=== PATIENT | male | born 1965 | race Caucasian/White ===

== ENCOUNTER → 2020-08-22 14:27 | Outpatient (CLI) | payer OTHER, SELFPAY ==
--- NOTE | ~2020-08-22 | XR_ITS ---
XR shoulder RT min 2V DATE: 08/22/2020 15:12 INDICATION: Right shoulder pain TECHNIQUE: 4 views COMPARISON: None FINDINGS: No fracture or dislocation, periosteal reaction or bone destruction or abnormal soft tissue calcification of the right shoulder. Normal alignment at the acromioclavicular and glenohumeral join ts. IMPRESSION: Negative Reviewed, dictated and finalized at location A. IMPRESSION: Negative
--- NOTE | ~2020-08-22 | XR_ITS ---
EXAMINATION: XR wrist RT min 3V DATE: 08/22/2020 15:12 INDICATION: Right wrist pain TECHNIQUE: Posteroanterior, ulnar deviation, oblique, and lateral views of the right wrist were obtai pinky. COMPARISON: none FINDINGS: No fracture. There is dorsal intercalated segment instability (DISI) with increased scapholunate angl e. Osteoarthritis with severe joint space narrowing at the radioscaphoid articulation and mild to mod erate nonuniform joint space narrowing at the lunocapitate articulation of the midcarpal joint. The a typical predominance at the radioscaphoid articulation can be seen in the setting of scapholunate adv anced collapse (SLAC) wrist. More typical pattern of mild osteoarthritis at the triscaphe and first c arpal metacarpal joints. IMPRESSION: 1. 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 Reviewed, dictated and finalized at location A. IMPRESSION: 1. 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
== END ==
PROVIDERS: Visit Provider Nurse Practitioner Adult Health
DX: M25.511 Pain in right shoulder (principal); M19.031 Primary osteoarthritis, right wrist
CPT/HCPCS: 73030; 73110

== ENCOUNTER 2022-07-29 00:16 | Day surgery (SDC) | payer OTHER, SELFPAY ==
[2022-07-23 14:19] VITALS: BMI 29.9
[2022-07-29 08:41] VITALS: BP 108/74; PULSE 74; RESP 16; TEMP 36.4; O2SAT 97
[2022-07-29] MEDS: LACTATED RINGERS 1,000 ML 150 ML IV CONT (08:43)
--- NOTE | 2022-07-29 08:54 | PM.HPGS ---
History of Present Illness History of Present Illness Consent: Risks, benefits, and alternatives have been discussed and questions answered. Patient agrees to proceed with procedure. Chief complaint: neoplasm screening Narrative: Flo Buckner is a 56 year old male Presents for screening colonoscopy. Patient's current weight appetite and bowel movements are normal. Patient denies abdominal pain. He has had bleeding. Family history is significant both father and brother have had colon polyps. Previous colonoscopy 2017 was unremarkable. Review of Systems Review of Systems: Review of systems noncontributory. [facility] Past Medical History Medical History ADD (attention deficit disorder) Anxiety Dupuytrens contracture Erectile dysfunction Essential (primary) hypertension Genital herpes in men Hyperglycemia Mixed hyperlipidemia ANILA (obstructive sleep apnea) Restless legs Surgical History Surgical History Status post total hip replacement, left Family History Family History (Updated 07/10/22 @ 09:11 by Christel Robles CMA) Sibling Hypertension Father Cerebrovascular accident Heart failure Sibling Alcoholism and drug addiction in family Other Diabetes mellitus Family history of arthritis Family history of coronary artery disease Family history of malignant neoplasm of skin Social History Social History Smoking status: Former smoker Tobacco type: cigarettes Second hand tobacco smoke exposure: No Alcohol intake: current Alcohol use details: occasional Substance use: never Substance use type: does not use Living arrangements: with family Gender identity (if verbalized by the patient): Male Spiritual care concerns: No Agree to blood products: Yes Meds Home Medications and Allergies Home Medications Medication Instructions Recorded Confirmed Type diazepam 5 mg tablet (Valium) 5 mg PO BID PRN anxiety #20 tabs 07/10/22 07/29/22 Rx lisinopril 40 mg tablet 40 mg PO DAILY 07/23/22 07/29/22 History methylphenidate HCl 27 mg 27 mg PO QAM PRN other 07/23/22 07/29/22 History tablet,extended release 24 hr (Concerta) sildenafil (pulm.hypertension) 20 20 mg PO DAILY PRN Erectile 07/23/22 07/29/22 History mg tablet Dysfunction valacyclovir 500 mg tablet 500 mg PO Q12H PRN Cold Sores 07/23/22 07/29/22 History (Valtrex) Allergies Allergy/AdvReac Type Severity Reaction Status Date / Time No Known Allergies Allergy Verified 07/29/22 08:31 Vital Signs Vital Signs - 24 hr 07/29/22 08:41 Temperature 97.5 F L Pulse Rate 74 Respiratory Rate 16 Blood Pressure 108/74 Pulse Oximetry 97 Oxygen Delivery Room Air Exam Narrative: Physical exam reveals patient to be alert. Vital signs stable. HEENT exam is unremarkable. Patient is anicteric. Lungs are clear to auscultation and percussion. Heart is without murmur or extra sounds. Abdomen bowel sounds are present soft nontender with no organomegaly. Digital external rectal exam is normal. Assessment and Plan Assessment and plan (1) Family history of colonic polyps: Code(s): Z83.71 - Family history of colonic polyps Status: Acute Assessment and Plan: Patient has a family history of colon polyps in both father and brother. Plan for surveillance colonoscopy now and consider this in 5 years.
--- NOTE | 2022-07-29 09:10 | WPDANESEPPF ---
Anes - Initial Pre Proc Eval Procedure: Operation Date: 07/29/22 09:45 Proposed Procedures p Screening Colonoscopy - hPilip Carmona MD Date/Time: 07/29/22 09:10 Surgeon: Philip Carmona MD Pre Op Diagnosis: neoplasm screening Patient Data Age: 56 Gender: M Height: 1.85 m Weight: 103.4 kg Last Vital Signs Temp 97.5 F L 07/29/22 08:41 Pulse 74 07/29/22 08:41 Resp 16 07/29/22 08:41 BP 108/74 07/29/22 08:41 Pulse Ox 97 07/29/22 08:41 O2 Del Method Room Air 07/29/22 08:41 Allergies Allergy/AdvReac Type Severity Reaction Status Date / Time No Known Allergies Allergy Verified 07/29/22 08:31 Home Medications Medication Instructions Recorded Confirmed Type diazepam 5 mg tablet (Valium) 5 mg PO BID PRN anxiety #20 tabs 07/10/22 07/29/22 Rx lisinopril 40 mg tablet 40 mg PO DAILY 07/23/22 07/29/22 History methylphenidate HCl 27 mg 27 mg PO QAM PRN other 07/23/22 07/29/22 History tablet,extended release 24 hr (Concerta) sildenafil (pulm.hypertension) 20 20 mg PO DAILY PRN Erectile 07/23/22 07/29/22 History mg tablet Dysfunction valacyclovir 500 mg tablet 500 mg PO Q12H PRN Cold Sores 07/23/22 07/29/22 History (Valtrex) Patient hx anesthesia problems: none Family hx anesthesia problems: none Results Review: All pre-operative results and documents have been reviewed as part of the pre-operative evaluation. [facility] Past Medical History Medical History ADD (attention deficit disorder) Anxiety Dupuytrens contracture Erectile dysfunction Essential (primary) hypertension Genital herpes in men Hyperglycemia Mixed hyperlipidemia ANILA (obstructive sleep apnea) Restless legs Surgical History Surgical History Status post total hip replacement, left Family History Family History (Updated 07/10/22 @ 09:11 by Christel Robles CMA) Sibling Hypertension Father Cerebrovascular accident Heart failure Sibling Alcoholism and drug addiction in family Other Diabetes mellitus Family history of arthritis Family history of coronary artery disease Family history of malignant neoplasm of skin Social History Social History Smoking status: Former smoker Tobacco type: cigarettes Second hand tobacco smoke exposure: No Alcohol intake: current Alcohol use details: occasional Substance use: never Substance use type: does not use Living arrangements: with family Gender identity (if verbalized by the patient): Male Spiritual care concerns: No Agree to blood products: Yes Anes - Eval Final PreProcedure Day of Procedure 07/29/22 09:10 Patient weight: normal Heart: regular rate and rhythm Lungs: clear to auscultation Airway: Mallampati scale class II Neurological: alert and oriented Last oral intake: >/= 8 hours ASA classification: III Emergent: no Anesthetic plan: proceed Anesthesia type and monitoring: general GIVS and standard monitoring Results Review: All pre-operative results and documents have been reviewed as part of the pre-operative evaluation. Informed Consent: The patient's anesthetic plan and its attendant risks and benefits were discussed with the patient/family/POA. Questions were solicited and answers provided to the satisfaction of the patient/family/POA.
[2022-07-29 10:10] VITALS: BP 105/74; PULSE 72; RESP 20; O2SAT 97
[2022-07-29 10:20] VITALS: BP 107/71; PULSE 70; RESP 19; O2SAT 100
[2022-07-29 10:30] VITALS: BP 103/64; PULSE 69; RESP 17; O2SAT 99
== END 2022-07-29 10:38 | disposition home or self-care (01) ==
PROVIDERS: PCP Family Medicine; Visit Provider Internal Medicine Gastroenterology
PROC: 0DJD8ZZ Inspection of Lower Intestinal Tract, Via Natural or Artificial Opening Endoscopic (ICD-10-PCS; CPT 45378; principal; 2022-07-29 09:45)
DX: Z12.11 Encounter for screening for malignant neoplasm of colon (principal); K64.8 Other hemorrhoids; K57.32 Diverticulitis of large intestine without perforation or abscess without bleeding; Z83.71 Family history of colonic polyps; I10 Essential (primary) hypertension; E78.2 Mixed hyperlipidemia; G47.33 Obstructive sleep apnea (adult) (pediatric); F98.8 Other specified behavioral and emotional disorders with onset usually occurring in childhood and adolescence; G25.81 Restless legs syndrome; F41.9 Anxiety disorder, unspecified; B00.9 Herpesviral infection, unspecified; Z87.891 Personal history of nicotine dependence
CPT/HCPCS: 45378; J2704; J7120